=== PATIENT | male | born 1965 | race Two or more races ===

== ENCOUNTER 2018-06-21 11:50 | Day surgery (SDC) | payer OTHER ==
[~2018-06-21] VITALS: Ht 195.6 cm; Wt 65.0 kg
[~2018-06-21 11:50] MED LIST: BUPIVACAINE/PF-EPI 0.5% 1:200K ONE
[2018-06-21] MEDS ORDERED: IRBE150T25 PO (12:36)
[2018-06-21] MEDS ORDERED: FLUT9.9S INH (12:36)
[2018-06-21] MEDS ORDERED: LACTATED RINGERS 1,000 ML IV SCH (12:45)
[2018-06-21 12:46] VITALS: BP 168/103
[2018-06-21 13:26] LABS: ALANINE AMINOTRANSFERASE 30 U/L (12-78); ALBUMIN 4.2 g/dL (3.4-5.0); ANION GAP 4 mmol/L (5-15); CHLORIDE 110 mmol/L (98-107); CREATININE 0.82 mg/dL (0.7-1.3)
[2018-06-21 13:28] LABS: ALKALINE PHOSPHATASE 84 U/L (45-117); BILIRUBIN,TOTAL 0.9 mg/dL (0.2-1.0); TOTAL PROTEIN 7.8 g/dL (6.4-8.2)
[2018-06-21] MEDS ORDERED: MIDAZOLAM 1 MG/ML, 2ML ONE (16:54)
[2018-06-21] MEDS ORDERED: FENTANYL PF 100 MCG/2ML ONE (16:55)
[2018-06-21] MEDS ORDERED: ALBUTEROL SULFATE 2.5 MG/3 ML NPPB PRN (18:00)
[2018-06-21] MEDS ORDERED: MEPERIDINE/PF 25MG/0.5ML IVPush PRN (18:00)
[2018-06-21] MEDS ORDERED: hydrALAzine 20 MG/ML, 1ML IV PRN (18:00)
[2018-06-21] MEDS ORDERED: FENTANYL PF 100 MCG/2ML IV PRN (18:00)
[2018-06-21] MEDS ORDERED: PROMETHAZINE 25 MG/ML, 1ML IV PRN (18:00)
[2018-06-21] MEDS ORDERED: LORazepam 2 MG/ML, 1ML IVPush PRN (18:00)
[2018-06-21] MEDS ORDERED: OXYcodone 5 MG/5 ML ORAL.SOL UDC PO PRN (18:00)
[2018-06-21] MEDS ORDERED: ACETAMINOPHEN 325 MG TABLET PO PRN (18:00)
[2018-06-21] MEDS ORDERED: HYDROmorphone 2 MG/ML, 1ML IV PRN (18:00)
[2018-06-21] MEDS ORDERED: LABETALOL 5MG/ML, 20ML IV PRN (18:00)
[2018-06-21] MEDS ORDERED: MORPHINE SULFATE 4 MG/ML, 1ML IVPush PRN (18:00)
[2018-06-21] MEDS ORDERED: HYDROmorphone 1 MG/ML, 1ML IV PRN (18:00)
[2018-06-21 19:30] VITALS: BP 127/74
[2018-06-21] MEDS ORDERED: ONDANSETRON 2MG/ML, 2ML IVPush PRN ×2 (19:30)
[2018-06-21] MEDS ORDERED: HYDROcodone/APAP 5/325 TABLET PO PRN ×2 (19:30)
== END 2018-06-21 20:10 ==
LOC: OUT 11:50 → 4NOR 19:05 → OUT 20:10
PROVIDERS: ATTEND Surgery
DX: D17.21 Benign lipomatous neoplasm of skin and subcutaneous tissue of right arm (principal); I10 Essential (primary) hypertension; Z72.89 Other problems related to lifestyle; Z87.891 Personal history of nicotine dependence
CPT/HCPCS: 36415; 80053; 88305; J2250; J3010; J7120

== ENCOUNTER → 2020-08-13 | Outpatient (CLI) | payer OTHER ==
[~2020-08-13] MED LIST changes: -BUPIVACAINE/PF-EPI 0.5% 1:200K ONE; +FLUT9.9S INH; +IRBE150T9 PO
== END | disposition home or self-care (01) ==
LOC: CFH 09:13
PROVIDERS: ATTEND Family Medicine
DX: R10.84 Generalized abdominal pain (principal)
CPT/HCPCS: 76870

== ENCOUNTER → 2020-11-20 | Outpatient (CLI) | payer OTHER ==
[~2020-11-20] MED LIST changes: +OMNIPAQUE 350 MG/ML, 100ML BOTTLE ONE
== END | disposition home or self-care (01) ==
LOC: CFH 12:41
PROVIDERS: ATTEND Physician Assistant
DX: N50.89 Other specified disorders of the male genital organs (principal); K40.90 Unilateral inguinal hernia, without obstruction or gangrene, not specified as recurrent; N28.1 Cyst of kidney, acquired; M51.36 Other intervertebral disc degeneration, lumbar region
CPT/HCPCS: 74177; Q9967

== ENCOUNTER → 2020-12-04 | Outpatient (CLI) | payer OTHER ==
[~2020-12-04] MED LIST changes: -OMNIPAQUE 350 MG/ML, 100ML BOTTLE ONE
[2020-12-04 16:02] LABS: ALANINE AMINOTRANSFERASE 21 U/L (12-78); ALBUMIN 3.8 g/dL (3.4-5.0); ANION GAP 4 mmol/L (5-15); CHLORIDE 111 mmol/L (98-107)
[2020-12-04 16:04] LABS: ALKALINE PHOSPHATASE 96 U/L (45-117); BILIRUBIN,TOTAL 0.4 mg/dL (0.2-1.0); TOTAL PROTEIN 7.6 g/dL (6.4-8.2)
== END | disposition home or self-care (01) ==
LOC: STAR 14:01
PROVIDERS: ATTEND Surgery
DX: Z01.812 Encounter for preprocedural laboratory examination (principal); K40.90 Unilateral inguinal hernia, without obstruction or gangrene, not specified as recurrent; Z20.828 Contact with and (suspected) exposure to other viral communicable diseases
CPT/HCPCS: 80053; 87635

== ENCOUNTER 2020-12-10 13:10 | Day surgery (SDC) | payer OTHER ==
[~2020-12-10] VITALS: Ht 165.1 cm; Wt 64.6 kg
[~2020-12-10 13:10] MED LIST changes: +BUPIVACAINE/EPI 0.5% 1:200K ONE
[2020-12-10] MEDS ORDERED: CHLORHEXIDINE 15 ML UDC MM ONE (13:30)
[2020-12-10] MEDS ORDERED: VITAMIN C PO (13:30)
[2020-12-10] MEDS ORDERED: vitamin D3 PO (13:30)
[2020-12-10] MEDS ORDERED: LACTATED RINGERS 1,000 ML IV SCH (13:30)
[2020-12-10 13:31] VITALS: BP 163/97
[2020-12-10] MEDS ORDERED: FENTANYL PF 100 MCG/2ML ONE ×2 (15:25→16:47)
[2020-12-10] MEDS ORDERED: MIDAZOLAM 1 MG/ML, 2ML ONE (15:25)
[2020-12-10] MEDS ORDERED: ROCURONIUM 10 MG/ML,10ML ONE (15:29)
[2020-12-10] MEDS ORDERED: DEXAMETHASONE 4 MG/ML, 1ML ONE (15:29)
[2020-12-10] MEDS ORDERED: PROPOFOL 10 MG/ML, 20ML ONE (15:29)
[2020-12-10] MEDS ORDERED: ONDANSETRON 2MG/ML, 2ML ONE (15:29)
[2020-12-10] MEDS ORDERED: CEFAZOLIN 1,000 MG ONE (15:29)
[2020-12-10] MEDS ORDERED: METHOCARBAMOL 1,000 MG in DEXTROSE 5% 100 ML IV PRN (16:00)
[2020-12-10] MEDS ORDERED: ACETAMINOPHEN 325 MG TABLET PO PRN (16:00)
[2020-12-10] MEDS ORDERED: PROMETHAZINE 25 MG/ML, 1ML IVPush PRN (16:00)
[2020-12-10] MEDS ORDERED: ONDANSETRON 2MG/ML, 2ML IVPush PRN (16:00)
[2020-12-10] MEDS ORDERED: HYDROmorphone 1 MG/ML, 1ML INJ IVPush PRN (16:00)
[2020-12-10] MEDS ORDERED: FENTANYL PF 100 MCG/2ML IV PRN (16:00)
[2020-12-10] MEDS ORDERED: PROMETHAZINE 25 MG SUPP PR PRN (16:00)
[2020-12-10] MEDS ORDERED: OXYcodone 5 MG/5 ML ORAL.SOL UDC PO PRN (16:00)
[2020-12-10] MEDS ORDERED: OXYcodone 5 MG/5 ML ORAL.SOL UDC ONE (16:47)
[2020-12-10] MEDS ORDERED: ACETAMINOPHEN 650 MG/20.3 ML UDC ONE (17:00)
== END 2020-12-10 20:18 | disposition home or self-care (01) ==
LOC: OUT 13:10
PROVIDERS: ATTEND Surgery
DX: K40.90 Unilateral inguinal hernia, without obstruction or gangrene, not specified as recurrent (principal); I10 Essential (primary) hypertension; F15.90 Other stimulant use, unspecified, uncomplicated; Z79.899 Other long term (current) drug therapy; Z98.890 Other specified postprocedural states; Z72.89 Other problems related to lifestyle; Z87.891 Personal history of nicotine dependence; Z82.49 Family history of ischemic heart disease and other diseases of the circulatory system
CPT/HCPCS: 49650; C1781; J0690; J1100; J2250; J2405; J2704; J3010; J7120; S2900

== ENCOUNTER 2021-04-23 11:18 | Emergency (ER) | payer OTHER ==
[~2021-04-23] VITALS: Ht 165.1 cm; Wt 69.5 kg
[~2021-04-23 11:18] MED LIST changes: -BUPIVACAINE/EPI 0.5% 1:200K ONE; +VITAMIN C PO; +vitamin D3 PO
[2021-04-23 11:58] LABS: BASOPHILS % (AUTO) 1 % (0-1); EOSINOPHILS % (AUTO) 4 % (1-7); LYMPHOCYTES % (AUTO) 27 % (22-44); MEAN CORPUSCULAR HEMOGLOBIN 29.3 pg (27.5-34.5); MEAN CORPUSCULAR HGB CONC 33.8 g/dL (33.2-36.2); MEAN PLATELET VOLUME 6.6 fL (7.4-10.4); MONOCYTES % (AUTO) 8 % (2-9); NEUTROPHILS % (AUTO) 61 % (42-75); PLATELET COUNT 319 x10^3/uL (130-400); RED BLOOD COUNT 5.08 x10^6/uL (4.38-5.82); RED CELL DISTRIBUTION WIDTH 13.9 % (9.4-14.8)
[2021-04-23 11:59] LABS: MD NO
[2021-04-23 12:05] LABS: ANION GAP 4 mmol/L (5-15); CHLORIDE 107 mmol/L (98-107)
[2021-04-23 12:11] LABS: ALANINE AMINOTRANSFERASE 29 U/L (12-78); ALKALINE PHOSPHATASE 93 U/L (45-117); BILIRUBIN,TOTAL 0.6 mg/dL (0.2-1.0); CREATININE 0.76 mg/dL (0.7-1.3)
--- NOTE | 2021-04-23 13:27 | NUR ---
TASK RN: PT TO ROOM FROM [place], GAIT STEADY.
--- NOTE | 2021-04-23 13:32 | NUR ---
55 YR OLD MALE HERE WITH C/O "CHEST PAIN FOR A WEEK (RIGHT SIDE)" PT WAS SEEN AT DR OCONNOR'S OFFICE AND SENT TO THE ER. PT PLACED ON MONITORS, (SR PER MONITOR) AUTO BP AND PULSE OX. PT IN NO ACUTE DISTRESS. "IT DOESNT HURT TOO BAD, BUT IS ALWAYS THERE"
--- NOTE | 2021-04-23 13:44 | NUR ---
REPORT TO JOSE ENRIQUE CHRIS.
[2021-04-23 15:58] VITALS: BP 130/88
== END 2021-04-23 15:59 | disposition home or self-care (01) ==
LOC: ED 14:20
DX: R07.89 Other chest pain (principal); I10 Essential (primary) hypertension; Z87.891 Personal history of nicotine dependence
CPT/HCPCS: 36415; 71045; 80053; 84484; 85025; 93005; 99285